=== PATIENT | male | born 2000 | race Caucasian/White ===

== ENCOUNTER 2024-04-03 21:48 | Emergency (ER) | payer OTHER, SELFPAY ==
[2024-04-03 22:03] VITALS: BP 132/80; PULSE 67; RESP 16; TEMP 36.7; O2SAT 100; BMI 28.8
[2024-04-03 22:25] VITALS: BP 156/82; PULSE 77; RESP 12; O2SAT 99
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
[2024-04-03 23:00] VITALS: BP 139/80; PULSE 69; RESP 12; O2SAT 99
[2024-04-03 23:30] VITALS: BP 131/90; PULSE 83; RESP 12; O2SAT 99
[2024-04-03] MEDS: tetanus-dipt-pertussis 0.5 mL SDV IM (23:34)
== END 2024-04-04 00:07 | disposition home or self-care (01) ==
PROVIDERS: Emergency Provider Physician Assistant
DX: S01.81XA Laceration without foreign body of other part of head, initial encounter (principal); V86.59XA Driver of other special all-terrain or other off-road motor vehicle injured in nontraffic accident, initial encounter; Z23 Encounter for immunization
CPT/HCPCS: 12052; 90471; 90715; 99283